=== PATIENT | female | born 2000 | race Caucasian/White ===

== ENCOUNTER 2022-09-24 15:52 | Emergency (ER) | payer MEDICAID ==
[~2022-09-24] VITALS: Ht 162.6 cm; Wt 84.8 kg
--- NOTE | 2022-09-24 16:40 | NUR ---
Dr Land evaluated the pt.
[2022-09-24 17:05] LABS: HEMATOCRIT 38.5 % (31.2-41.9); MEAN CORPUSCULAR HEMOGLOBIN 30.1 uug (24.7-32.8); MEAN CORPUSCULAR VOLUME 90.1 fL (75.5-95.3); PLATELET COUNT (AUTO) 221 K/uL (179-408)
[2022-09-24 17:18] LABS: CARBON DIOXIDE 24 mmol/L (21-32); CHLORIDE 106 mmol/L (98-107); CREATININE 0.7 mg/dL (0.6-1.3); POTASSIUM 3.9 mmol/L (3.5-5.1); UREA NITROGEN, BLOOD 12 mg/dL (7-18)
[2022-09-24 17:31] LABS: ALANINE AMINOTRANSFERASE 22 U/L (14-59); ALKALINE PHOSPHATASE 69 U/L (50-136); ASPARTATE AMINOTRANSFERASE 9 U/L (15-37); BILIRUBIN,DIRECT 0.1 mg/dL (0.0-0.2); BILIRUBIN,TOTAL 0.2 mg/dL (0.2-1.0); TOTAL PROTEIN, SERUM 6.9 g/dL (6.4-8.2)
--- NOTE | 2022-09-24 17:38 | NUR ---
Attempted to place HL by x2 Rns, but unable to. Pt requested not to have HL, Dr Land made aware.
[2022-09-24] MEDS ORDERED: ACET325T53 (18:23)
[2022-09-24] MEDS ORDERED: LANS30CA56 PO (18:23)
[2022-09-24] MEDS ORDERED: IBUP-1957 PO (18:33)
[2022-09-24 18:47] VITALS: BP 115/75; O2SAT 98
--- NOTE | 2022-09-24 18:47 | NUR ---
Patient discharged to home in stable condition. Written and verbal after care instructions given. Patient verbalizes understanding of instructions. Stressed follow up or return to ER for worsening s/s.
== END 2022-09-24 18:48 | disposition home or self-care (01) ==
LOC: ER 15:52
DX: R07.89 Other chest pain (principal); R10.2 Pelvic and perineal pain; Z79.899 Other long term (current) drug therapy
CPT/HCPCS: 36415; 84484; 85025; 85730; 93005; A4663

== ENCOUNTER 2022-11-19 05:06 | Emergency (ER) | payer MEDICAID ==
[~2022-11-19] VITALS: Ht 162.6 cm; Wt 84.8 kg
[~2022-11-19 05:06] MED LIST: ACET325T53; IBUP-1957 PO; LANS30CA56 PO
[2022-11-19] MEDS ORDERED: ACETAMINOPHEN/CODEINE 300-30 MG TABLET ONE (05:38)
[2022-11-19] MEDS ORDERED: ACETAMINOPHEN/CODEINE 300-30 MG TABLET PO ONE (05:45)
[2022-11-19 05:57] LABS: BASOPHILS % (AUTO) 0.3 % (0.0-2.0); EOSINOPHILS # (AUTO) 0.1 K/uL (0.0-0.7); HEMOGLOBIN 13.4 g/dL (10.9-14.3); LYMPHOCYTES # (AUTO) 1.3 K/uL (0.8-4.8); LYMPHOCYTES % (AUTO) 9.5 % (20.5-51.5); MEAN CORPUSCULAR HEMOGLOBIN 30.3 uug (24.7-32.8); MEAN CORPUSCULAR HGB CONC 34 g/dL (32.3-35.6); MEAN CORPUSCULAR VOLUME 88.1 fL (75.5-95.3); MONOCYTES # (AUTO) 0.6 K/uL (0.1-1.30); MONOCYTES % (AUTO) 4.6 % (0.0-11.0); NEUTROPHILS # (AUTO) 11.3 K/uL (1.8-8.9); NEUTROPHILS % (AUTO) 84.6 % (38.5-71.5); PLATELET COUNT (AUTO) 240 K/uL (179-408); RED BLOOD CELL COUNT(AUTO) 4.42 MIL/uL (3.63-4.92); WHITE BLOOD COUNT (AUTO) 13.3 K/uL (3.8-11.8)
[2022-11-19] MEDS ORDERED: ACET1TAB23 PO (06:06)
[2022-11-19 06:08] LABS: CALCIUM 9.3 mg/dL (8.5-10.1); CREATININE 0.8 mg/dL (0.6-1.3); POTASSIUM 3.3 mmol/L (3.5-5.1)
[2022-11-19 06:12] LABS: DIFFERENTIAL COMMENT 1
[2022-11-19 06:22] LABS: THYROID STIMULATING HORMONE 0.718 mIU/mL (0.358-3.740)
[2022-11-19] MEDS ORDERED: ONDA-104 PO (06:34)
[2022-11-19] MEDS ORDERED: AZIT250T13 PO (06:34)
[2022-11-19 06:46] VITALS: BP 134/94; O2SAT 99
== END 2022-11-19 06:46 | disposition home or self-care (01) ==
LOC: ER 05:11
DX: J06.9 Acute upper respiratory infection, unspecified (principal); B97.89 Other viral agents as the cause of diseases classified elsewhere; E04.9 Nontoxic goiter, unspecified; F17.210 Nicotine dependence, cigarettes, uncomplicated; Z79.1 Long term (current) use of non-steroidal anti-inflammatories (NSAID); Z79.899 Other long term (current) drug therapy; Z20.822 Contact with and (suspected) exposure to COVID-19
CPT/HCPCS: 36415; 84443; 85025; 86403; A4663